=== PATIENT | female | born 1995 | race Caucasian/White ===

== ENCOUNTER → 2017-03-31 | Emergency (ER) | payer SELFPAY, OTHER | END | disposition left against medical advice (07) | LOC: E/R 19:31 | DX: Z53.21 Procedure and treatment not carried out due to patient leaving prior to being seen by health care provider (principal) ==

== ENCOUNTER 2017-10-16 12:21 | Emergency (ER) | payer OTHER ==
[2017-10-16] MEDS: SOD CHLORIDE 0.9% 1,000 ML IV (13:14)
[2017-10-16] MEDS: ONDANSETRON 4 MG INJ IV (13:15)
[2017-10-16 13:39] LABS: ADD MAN DIFF? NO
[2017-10-16 13:49] LABS: WHITE BLOOD COUNT 12.4 10^3/ul (4.8-10.8)
[2017-10-16 13:49] LABS: BASOPHIL # 0.1 10^3/ul (0.0-0.1); BASOPHILS % 0.7 % (0.0-2.0); EOSINOPHILS % 0.1 % (0.0-7.0); HEMATOCRIT 44.5 % (37.0-47.0); HEMOGLOBIN 14.8 g/dl (12.0-16.0); LYMPHOCYTES # 1.8 10^3/ul (0.8-2.9); LYMPHOCYTES % 14.4 % (15.0-51.0); MEAN CORPUSCULAR HEMOGLOBIN 25.4 pg (29.0-33.0); MEAN CORPUSCULAR HGB CONC 33.3 g/dl (32.0-37.0); MEAN CORPUSCULAR VOLUME 76.5 fl (82.0-101.0); MEAN PLATELET VOLUME 10.4 fl (7.4-10.4); MONOCYTE # 0.7 10^3/ul (0.3-0.9); NEUTROPHIL # 9.7 10^3/ul (1.6-7.5); NEUTROPHILS % 78.6 % (39.0-77.0); PLATELET COUNT 425 10^3/UL (140-415); RED BLOOD COUNT 5.82 10^6/ul (4.20-5.40); RED CELL DISTRIBUTION WIDTH 15.7 % (11.5-14.5)
[2017-10-16] MEDS: DIPHENHYDRAMINE 50 MG INJ IV (13:49)
[2017-10-16] MEDS: morphine 4 MG/ML VIAL IV (13:49)
[2017-10-16 13:54] LABS: URINE PH (Dip) POC 6.5 (5.0-8.5)
[2017-10-16 13:54] LABS: URINE BLOOD (Dip) POC Trace-lysed (NEGATIVE); URINE GLUCOSE (Dip) POC Negative (NEGATIVE); URINE KETONES (Dip) POC 2+ (NEGATIVE); URINE LEUKOCYTE EST (Dip) POC 1+ (NEGATIVE); URINE NITRITE (Dip) POC Negative (NEGATIVE); URINE TOTAL PROTEIN POC 2+ (NEGATIVE)
[2017-10-16 14:09] LABS: ALANINE AMINOTRANSFERASE 25 IU/L (13-69); ALBUMIN/GLOBULIN RATIO 1.08; ALKALINE PHOSPHATASE 106 IU/L (42-121); AMYLASE 53 U/L (11-123); ANION GAP 19 (8-16); ASPARTATE AMINO TRANSFERASE 31 IU/L (15-46); BILIRUBIN,INDIRECT 0.7 mg/dl (0-1.1); BILIRUBIN,TOTAL 0.7 mg/dl (0.2-1.3); BLOOD UREA NITROGEN 15 mg/dl (7-20); CALCIUM 10.4 mg/dl (8.4-10.2); CARBON DIOXIDE 32 mmol/L (21-31); CHLORIDE 89 mmol/L (97-110); GLUCOSE 139 mg/dl (70-220); LIPASE 65 U/L (23-300); SODIUM 137 mmol/L (135-144); TOTAL PROTEIN 9.6 g/dl (6.1-8.1)
[2017-10-16 14:12] LABS: POTASSIUM 2.9 mmol/L (3.5-5.1)
[2017-10-16 14:35] LABS: ADD UMIC YES; UR ASCORBIC ACID NEGATIVE (NEGATIVE); UR BILIRUBIN (Dip) NEGATIVE (NEGATIVE); UR BLOOD (Dip) NEGATIVE (NEGATIVE); UR CLARITY CLOUDY (CLEAR); UR COLOR YELLOW (YELLOW); UR GLUCOSE (Dip) NEGATIVE (NEGATIVE); UR KETONES (Dip) 1+ mg/dL (NEGATIVE); UR LEUKOCYTE ESTERASE (Dip) 3+ Leu/ul (NEGATIVE); UR MUCUS FEW /HPF (NONE SEEN); UR NITRITE (Dip) NEGATIVE (NEGATIVE); UR RBC 4 /HPF (0-5); UR SQUAMOUS EPITHELIAL CELL FEW /HPF (FEW); UR TOTAL PROTEIN (Dip) 1+ mg/dl (NEGATIVE); UR UROBILINOGEN (Dip) NEGATIVE (NEGATIVE); UR WBC 38 /HPF (0-5)
[2017-10-16 14:42] LABS: AMPHETAMINE/METHAMPHETAMINE Negative (NEGATIVE); CANNABINOIDS Positive (NEGATIVE); OPIATES Negative (NEGATIVE)
[2017-10-16 14:43] LABS: BENZODIAZEPINES Negative (NEGATIVE)
[2017-10-16 14:44] LABS: COCAINE Negative (NEGATIVE)
[2017-10-16] MEDS: CEFTRIAXONE 1 GM/50 ML (PMX) 50 ML IVPB (14:59)
[2017-10-16] MEDS: SOD CHLORIDE 0.9% 500 ML IV (14:59)
[2017-10-16] MEDS: POTASSIUM CHLORIDE (SR) 20 MEQ TAB PO (14:59)
[2017-10-16 16:31] LABS: BARBITURATES Negative (NEGATIVE)
== END 2017-10-16 16:15 | disposition home or self-care (01) ==
LOC: FTE 12:21
DX: N39.0 Urinary tract infection, site not specified (principal); E87.6 Hypokalemia; K57.30 Diverticulosis of large intestine without perforation or abscess without bleeding
CPT/HCPCS: 36415; 74176; 80053; 80307; 81001; 81003; 81025; 82150; 83690; 84703; 85025; 87086; 96361; 96365; 96375; 99285-25

== ENCOUNTER 2017-10-29 14:54 | Emergency (ER) | payer OTHER ==
[2017-10-29] MEDS: CEFTRIAXONE 1 GM/50 ML (PMX) 50 ML IVPB (15:40)
[2017-10-29] MEDS: ONDANSETRON 4 MG INJ IV (15:40)
[2017-10-29] MEDS: LORAZEPAM 1 MG TAB PO ×2 (15:40→16:01)
[2017-10-29] MEDS: HYDROmorphONE 1 MG/ML SYG IV (15:40)
[2017-10-29] MEDS: LACTATED RINGER'S 1,000 ML IV ×2 (15:46→17:12)
[2017-10-29 15:48] LABS: ADD MAN DIFF? NO
[2017-10-29 15:49] LABS: WHITE BLOOD COUNT 13.9 10^3/ul (4.8-10.8)
[2017-10-29 15:49] LABS: BASOPHIL # 0.1 10^3/ul (0.0-0.1); BASOPHILS % 0.4 % (0.0-2.0); EOSINOPHILS % 0.2 % (0.0-7.0); HEMATOCRIT 41.6 % (37.0-47.0); HEMOGLOBIN 13.6 g/dl (12.0-16.0); LYMPHOCYTES # 1.9 10^3/ul (0.8-2.9); LYMPHOCYTES % 13.9 % (15.0-51.0); MEAN CORPUSCULAR HEMOGLOBIN 25.7 pg (29.0-33.0); MEAN CORPUSCULAR HGB CONC 32.7 g/dl (32.0-37.0); MEAN CORPUSCULAR VOLUME 78.6 fl (82.0-101.0); MEAN PLATELET VOLUME 9.8 fl (7.4-10.4); MONOCYTE # 0.4 10^3/ul (0.3-0.9); NEUTROPHIL # 11.4 10^3/ul (1.6-7.5); NEUTROPHILS % 82.2 % (39.0-77.0); PLATELET COUNT 351 10^3/UL (140-415); RED BLOOD COUNT 5.29 10^6/ul (4.20-5.40)
[2017-10-29 16:08] LABS: ANION GAP 15 (8-16); BLOOD UREA NITROGEN 8 mg/dl (7-20); CALCIUM 10.4 mg/dl (8.4-10.2); CARBON DIOXIDE 24 mmol/L (21-31); CHLORIDE 106 mmol/L (97-110); CREATININE 0.63 mg/dl (0.44-1.00); GLUCOSE 105 mg/dl (70-220); LIPASE 59 U/L (23-300); POTASSIUM 3.8 mmol/L (3.5-5.1); SODIUM 141 mmol/L (135-144)
== END 2017-10-29 19:37 | disposition home or self-care (01) ==
LOC: FTE 14:54
DX: N39.0 Urinary tract infection, site not specified (principal)
CPT/HCPCS: 36415; 80048; 83690; 85025; 96365; 96375; 99284-25

== ENCOUNTER 2017-11-17 17:43 | Emergency (ER) | payer OTHER ==
[2017-11-17 19:21] LABS: WHITE BLOOD COUNT 15.9 10^3/ul (4.8-10.8)
[2017-11-17 19:21] LABS: ADD MAN DIFF? NO; BASOPHIL # 0.1 10^3/ul (0.0-0.1); BASOPHILS % 0.4 % (0.0-2.0); HEMATOCRIT 41.1 % (37.0-47.0); HEMOGLOBIN 13.2 g/dl (12.0-16.0); LYMPHOCYTES # 0.7 10^3/ul (0.8-2.9); LYMPHOCYTES % 4.3 % (15.0-51.0); MEAN CORPUSCULAR HEMOGLOBIN 25.3 pg (29.0-33.0); MEAN CORPUSCULAR HGB CONC 32.1 g/dl (32.0-37.0); MEAN CORPUSCULAR VOLUME 78.7 fl (82.0-101.0); MEAN PLATELET VOLUME 9.7 fl (7.4-10.4); MONOCYTE # 0.3 10^3/ul (0.3-0.9); NEUTROPHIL # 14.8 10^3/ul (1.6-7.5); NEUTROPHILS % 92.9 % (39.0-77.0); PLATELET COUNT 422 10^3/UL (140-415); RED BLOOD COUNT 5.22 10^6/ul (4.20-5.40); RED CELL DISTRIBUTION WIDTH 15.7 % (11.5-14.5)
[2017-11-17] MEDS: ONDANSETRON 4 MG INJ IV (19:22)
[2017-11-17] MEDS: LACTATED RINGER'S 1,000 ML IV (19:22)
[2017-11-17] MEDS: morphine 2 MG INJ IV (19:22)
[2017-11-17 19:40] LABS: ALANINE AMINOTRANSFERASE 14 IU/L (13-69); ALBUMIN 5.3 g/dl (3.3-4.9); ALBUMIN/GLOBULIN RATIO 1.17; ALKALINE PHOSPHATASE 94 IU/L (42-121); ANION GAP 19 (8-16); ASPARTATE AMINO TRANSFERASE 27 IU/L (15-46); BILIRUBIN,INDIRECT 0.3 mg/dl (0-1.1); BILIRUBIN,TOTAL 0.3 mg/dl (0.2-1.3); BLOOD UREA NITROGEN 11 mg/dl (7-20); CALCIUM 10.4 mg/dl (8.4-10.2); CARBON DIOXIDE 24 mmol/L (21-31); CHLORIDE 103 mmol/L (97-110); CREATININE 0.56 mg/dl (0.44-1.00); GLUCOSE 138 mg/dl (70-220); LIPASE 63 U/L (23-300); POTASSIUM 3.6 mmol/L (3.5-5.1); SODIUM 142 mmol/L (135-144); TOTAL PROTEIN 9.8 g/dl (6.1-8.1)
[2017-11-17 20:05] LABS: ADD UMIC YES; UR ASCORBIC ACID 40 mg/dL (NEGATIVE); UR BILIRUBIN (Dip) NEGATIVE (NEGATIVE); UR BLOOD (Dip) NEGATIVE (NEGATIVE); UR CLARITY CLOUDY (CLEAR); UR COLOR YELLOW (YELLOW); UR GLUCOSE (Dip) 1+ mg/dL (NEGATIVE); UR KETONES (Dip) 1+ mg/dL (NEGATIVE); UR LEUKOCYTE ESTERASE (Dip) TRACE Leu/ul (NEGATIVE); UR MUCUS MANY /HPF (NONE SEEN); UR NITRITE (Dip) NEGATIVE (NEGATIVE); UR RBC 4 /HPF (0-5); UR SPECIFIC GRAVITY (Dip) 1.028 (1.003-1.030); UR SQUAMOUS EPITHELIAL CELL MODERATE /HPF (FEW); UR TOTAL PROTEIN (Dip) 2+ mg/dl (NEGATIVE); UR UROBILINOGEN (Dip) NEGATIVE (NEGATIVE); UR WBC 11 /HPF (0-5)
[2017-11-17] MEDS: KETOROLAC 30 MG INJ IV (20:28)
== END 2017-11-17 21:51 | disposition home or self-care (01) ==
LOC: E/R 17:43
DX: N83.202 Unspecified ovarian cyst, left side (principal); N39.0 Urinary tract infection, site not specified
CPT/HCPCS: 36415; 76830; 76856; 80053; 81001; 81025; 83690; 85025; 87086; 96374; 96375; 99285-25